=== PATIENT | male | born 1965 | race Caucasian/White ===

== ENCOUNTER 2017-02-05 20:15 | Emergency (ER) | payer OTHER ==
[~2017-02-05] VITALS: Ht 177.8 cm; Wt 92.2 kg
[2017-02-05 20:18] VITALS: Ht 177.8 cm; Wt 92.2 kg
[2017-02-05] MEDS ORDERED: MoRPHine SULFATE 10 MG/ML CARP/VIAL IM STA (20:58)
[2017-02-05] MEDS ORDERED: KETOROLAC TROMETHAMINE 60 MG/2 ML VIAL IM STA (20:58)
[2017-02-05] MEDS ORDERED: ONDANSETRON 4MG OD TAB PO ONE (21:00)
[2017-02-05] MEDS ORDERED: SIMV20TA2 PO (21:05)
[2017-02-05] MEDS ORDERED: COLC1CAP3 PO (21:05)
[2017-02-05] MEDS ORDERED: CETI10TA84 PO (21:05)
[2017-02-05] MEDS ORDERED: MULT-506 PO (21:05)
[2017-02-05] MEDS ORDERED: HYG/25 PO (21:05)
[2017-02-05] MEDS ORDERED: ALLO100T PO (21:05)
[2017-02-05] MEDS ORDERED: PRLSR20 PO (21:05)
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
[2017-02-05] MEDS ORDERED: OXYC1TAB3 PO (22:49)
[2017-02-05] MEDS ORDERED: OXYCODONE IR HOME PACK PO ONE (23:00)
[2017-02-05 23:40] VITALS: BP 148/87; PULSE 82; TEMP 37.7; O2SAT 97
--- NOTE | 2017-02-06 00:23 | EMERGENCY ROOM VISIT NOTE ---
ED Visit Note First contact with patient: 20:31 I saw this patient in conjunction with Nick Boswell PA-C. I agree with his decision making and treatment plan.
== END 2017-02-05 23:45 | disposition home or self-care (01) ==
LOC: C.EDB 20:17 → C.EDD 23:45
DX: T23.291A Burn of second degree of multiple sites of right wrist and hand, initial encounter (principal); T23.041A Burn of unspecified degree of multiple right fingers (nail), including thumb, initial encounter; T24.221A Burn of second degree of right knee, initial encounter; X12.XXXA Contact with other hot fluids, initial encounter; I10 Essential (primary) hypertension; F17.200 Nicotine dependence, unspecified, uncomplicated; Z79.899 Other long term (current) drug therapy; Z82.49 Family history of ischemic heart disease and other diseases of the circulatory system